=== PATIENT | male | born 1990 | race African-American/Black ===

== ENCOUNTER 2022-01-02 19:00 | Emergency (ER) | payer OTHER ==
[2022-01-02 19:11] VITALS: BP 100/60; PULSE 89; TEMP 98.3; BMI 22.4
[2022-01-02] MEDS ORDERED: IBUPROFEN 600 MG TABLET (FP) PO ONE ×2 (19:47→19:51)
== END 2022-01-02 21:01 | disposition home or self-care (01) ==
LOC: JER 19:00 → JERFT 19:00
DX: M25.561 Pain in right knee (principal)
CPT/HCPCS: 73562-TC-RT-FY; 99283-25